=== PATIENT | male | born 1945 | race African-American/Black ===

== ENCOUNTER 2017-05-17 08:42 | Inpatient (IN) | payer OTHER, MEDICAID ==
[~2017-05-17] VITALS: Ht 188 cm; Wt 95.3 kg
[2017-05-17 08:47] VITALS: BP_SYST 119
[2017-05-17] MEDS ORDERED: NACL 0.9% 1,000 ML IV ONE ×2 (09:09→12:45)
[2017-05-17 09:49] LABS: BASOPHILS # (AUTO) 0.1 K/uL (0.0-0.2); BASOPHILS % (AUTO) 1.8 % (0.0-2.0); EOSINOPHILS # (AUTO) 0.3 K/uL (0.0-0.4); EOSINOPHILS % (AUTO) 3.6 % (0.0-4.0); HEMATOCRIT 36.5 % (36-54); HEMOGLOBIN 11.6 g/dL (14.0-18.0); LYMPHOCYTES # (AUTO) 2.3 K/uL (1.0-5.5); LYMPHOCYTES % (AUTO) 30.3 % (20.5-51.5); MEAN CORPUSCULAR HEMOGLOBIN 25 pg (27-31); MEAN CORPUSCULAR HGB CONC 32 % (32-36); MEAN CORPUSCULAR VOLUME 78 fL (79.0-98.0); MONOCYTES # (AUTO) 0.6 K/uL (0.0-1.0); MONOCYTES % (AUTO) 7.6 % (1.7-9.3); NEUTROPHILS # (AUTO) 4.2 K/uL (1.8-7.7); NEUTROPHILS % (AUTO) 56.7 % (40.0-70.0); PLATELET COUNT (AUTO) 237 K/uL (130-430); RED BLOOD CELL COUNT(AUTO) 4.69 MIL/uL (4.2-6.2); RED CELL DISTRIBUTION WIDTH 14.3 % (9.0-15.0); WHITE BLOOD COUNT (AUTO) 7.5 K/uL (4.8-10.8)
[2017-05-17 09:53] LABS: CALCIUM 8.5 mg/dL (8.4-11.0); CREATININE 1.11 mg/dL (0.55-1.30); POTASSIUM 4.5 mmol/L (3.5-5.1)
[2017-05-17 09:58] LABS: PROTHROMBIN TIME 10.9 SECS (9.5-12.5)
[2017-05-17 10:10] LABS: ALBUMIN 3.2 g/dL (3.4-4.8); TOTAL BILIRUBIN 0.3 mg/dL (0.0-1.0); TOTAL PROTEIN, SERUM 7.8 g/dL (6.4-8.3)
[2017-05-17 10:24] LABS: BILIRUBIN,URINE NEGATIVE (NEGATIVE); BLOOD, URINE NEGATIVE (NEGATIVE); CLARITY/URINE HAZY (CLEAR); COLOR,URINE YELLOW (YELLOW); GLUCOSE,URINE 3+ (NEGATIVE); KETONES,URINE NEGATIVE (NEGATIVE); LEUKOCYTE ESTERASE ,URINE TRACE (NEGATIVE); NITRITE, URINE NEGATIVE (NEGATIVE); PH,URINE 5.5 (5.0-8.0); PROTEIN URINE NEGATIVE (NEGATIVE); UROBILINOGEN,URINE 0.2 (0.2-1.0)
[2017-05-17 10:46] LABS: BACTERIA,URINE FEW /HPF (None Seen); RBC,URINE 0-3 /HPF (0-3)
[2017-05-17 10:47] LABS: MUCUS,URINE None Seen /LPF (None Seen); YEAST,URINE Many /HPF (None Seen)
[2017-05-17] MEDS ORDERED: INSULIN REGULAR, HUMAN 10 UNITS/0.1 ML INJ IVP ONE (11:15)
[2017-05-17] MEDS ORDERED: MORPHINE 4 MG/ML INJ. SYRINGE IVP PRN (13:30)
[2017-05-17] MEDS ORDERED: ONDANSETRON HCL 4 MG/2 ML VIAL IVP PRN (13:30)
[2017-05-17] MEDS ORDERED: INSULIN REGULAR, HUMAN 100 UNITS/ML, 10 ML VIAL (novoLIN R) SUBCUT PRN (13:30)
[2017-05-17] MEDS ORDERED: INSULIN REGULAR, HUMAN 10 UNITS/0.1 ML INJ ONE (13:43)
[2017-05-17] MEDS ORDERED: DOXA1TAB2 PO (14:32)
[2017-05-17] MEDS ORDERED: AMLO5TAB4 PO (14:33)
[2017-05-17] MEDS ORDERED: METF-509 PO (14:34)
[2017-05-17] MEDS ORDERED: PREG75CA PO (14:35)
[2017-05-17] MEDS ORDERED: ZOLP5TAB2 PO (14:37)
[2017-05-17] MEDS ORDERED: GLIP-195 PO (14:37)
[2017-05-17] MEDS ORDERED: SERT50TA12 PO (14:38)
[2017-05-17] MEDS ORDERED: LIP10 PO (14:38)
[2017-05-17] MEDS ORDERED: LORA-258 PO (14:39)
[2017-05-17] MEDS ORDERED: TRAM50TA92 PO (14:39)
[2017-05-17] MEDS ORDERED: SSNOVOLOG SUBCUT (14:40)
[2017-05-17 14:47] VITALS: BP_SYST 124
[2017-05-17] MEDS ORDERED: GABA-531 PO (14:57)
[2017-05-17] MEDS ORDERED: INSU100V9 SUBCUT (14:58)
[2017-05-17] MEDS ORDERED: [UNRECOGNIZED DRUG - OTHER] PO (14:59)
[2017-05-17] MEDS ORDERED: HALO50CR2 TP (15:01)
[2017-05-17] MEDS ORDERED: MUPI15CR12 TP (15:01)
[2017-05-17] MEDS ORDERED: CICL90CR10 TP (15:02)
[2017-05-17 16:26] VITALS: BP_SYST 138
[2017-05-17] MEDS ORDERED: LORazepam 1 MG TABLET PO SCH (19:00)
[2017-05-17] MEDS ORDERED: cefTRIAXone 1 GM in D5W 50 ML IV SCH (19:00)
[2017-05-17] MEDS: NACL 0.9% 1,000 ML IV SCH (19:52)
[2017-05-17 20:39] VITALS: BP_SYST 142
[2017-05-17] MEDS: PREGABALIN 75 MG CAPSULE (LYRICA) PO SCH ×2 (21:00→21:10)
[2017-05-17] MEDS ORDERED: SERTRALINE HCL 50 MG TABLET PO SCH (21:00)
[2017-05-17] MEDS ORDERED: ZOLPIDEM TARTRATE 5 MG TABLET PO SCH (21:00)
[2017-05-17] MEDS ORDERED: ATORVASTATIN 10 MG TABLET PO SCH (21:00)
[2017-05-17] MEDS: glipiZIDE XL 5 MG TAB ( GLUCOTROL XL) PO SCH ×2 (21:00→21:10)
[2017-05-17] MEDS: amLODIPine BESYLATE 5 MG TABLET PO SCH (21:09)
[2017-05-17] MEDS ORDERED: cefTRIAXone 1 GM IVPB PREMIX 50 ML IV ONE (21:47)
[2017-05-17 23:25] VITALS: BP_SYST 143
[2017-05-18] MEDS ORDERED: LORazepam 1 MG TABLET PO PRN
[2017-05-18 05:53] VITALS: BP_SYST 139
[2017-05-18 08:00] VITALS: BP_SYST 133
[2017-05-18] MEDS: NACL 0.9% 1,000 ML IV SCH (08:48)
[2017-05-18] MEDS: amLODIPine BESYLATE 5 MG TABLET PO SCH (09:29)
[2017-05-18] MEDS: PREGABALIN 75 MG CAPSULE (LYRICA) PO SCH (09:29)
[2017-05-18] MEDS: glipiZIDE XL 5 MG TAB ( GLUCOTROL XL) PO SCH (09:29)
[2017-05-18 12:12] VITALS: BP_SYST 126
[2017-05-18 16:00] VITALS: BP_SYST 143
[2017-05-18 17:06] VITALS: BP_SYST 145
== END 2017-05-18 17:15 | disposition home or self-care (01) | DRG 690 ==
LOC: SED 08:42 → SMU 12:42
PROVIDERS: ADMIT Family Medicine; ATTEND Family Medicine
PROC: 02HV33Z Insertion of Infusion Device into Superior Vena Cava, Percutaneous Approach (ICD-10-PCS; principal; 2017-05-17)
PROC: B548ZZA Ultrasonography of Superior Vena Cava, Guidance (ICD-10-PCS; 2017-05-17)
DX: N39.0 Urinary tract infection, site not specified (principal); K57.90 Diverticulosis of intestine, part unspecified, without perforation or abscess without bleeding; I10 Essential (primary) hypertension; E11.21 Type 2 diabetes mellitus with diabetic nephropathy; E11.40 Type 2 diabetes mellitus with diabetic neuropathy, unspecified; F41.9 Anxiety disorder, unspecified; E11.65 Type 2 diabetes mellitus with hyperglycemia; Z90.49 Acquired absence of other specified parts of digestive tract; Z86.73 Personal history of transient ischemic attack (TIA), and cerebral infarction without residual deficits; Z79.4 Long term (current) use of insulin; Z79.899 Other long term (current) drug therapy; Z79.84 Long term (current) use of oral hypoglycemic drugs
CPT/HCPCS: 36415; 71010; 80053; 81000-TC; 82150-TC; 82962; 83605; 83690-TC; 85025; 85610-TC; 85730-TC; 87086; 96360; 96361; 99285; C1751; C1769; J0696; J1815; J2270; J7030; J7060

== ENCOUNTER 2017-09-30 07:41 | Day surgery (SDC) | payer OTHER, MEDICAID ==
[~2017-09-30] VITALS: Ht 188 cm; Wt 90.7 kg
[~2017-09-30 07:41] MED LIST: AMLO5TAB4 PO; CICL90CR10 TP; DOXA1TAB2 PO; GABA-531 PO; GLIP-195 PO; HALO50CR2 TP; INSU100V9 SUBCUT; LIP10 PO; LORA-258 PO; METF-509 PO; MUPI15CR12 TP; PREG75CA PO; SERT50TA12 PO; SSNOVOLOG SUBCUT; TRAM50TA92 PO; ZOLP5TAB2 PO; [UNRECOGNIZED DRUG - OTHER] PO
[2017-09-30] MEDS ORDERED: SIMETHICONE 40 MG/0.6 ML ML ONE (08:17)
[2017-09-30] MEDS ORDERED: MIDAZOLAM HCL 5 MG/5 ML VIAL ONE (08:19)
[2017-09-30] MEDS ORDERED: fentaNYL CITRATE/PF 100 MCG/2 ML AMP ONE (08:20)
[2017-09-30] MEDS ORDERED: BENZOCAINE 20% 0.5mL UD SPRAY MM ONE (09:15)
[2017-09-30 14:16] VITALS: BP_SYST 138
== END 2017-09-30 10:30 | disposition home or self-care (01) ==
LOC: SMU 07:41 → SDS 07:41
PROVIDERS: ATTEND Internal Medicine
DX: K29.70 Gastritis, unspecified, without bleeding (principal); K21.0 Gastro-esophageal reflux disease with esophagitis; I63.9 Cerebral infarction, unspecified; E11.9 Type 2 diabetes mellitus without complications; J45.909 Unspecified asthma, uncomplicated; F17.210 Nicotine dependence, cigarettes, uncomplicated
CPT/HCPCS: 36415; 43239; 82962; 87081; 88305; 88312; 88313; J7030; J2250; J3010

== ENCOUNTER 2018-03-21 08:55 | Inpatient (IN) | payer OTHER, MEDICAID ==
[2018-03-21] VITALS (13 sets, daily range): BP systolic 88–137
[~2018-03-21] VITALS: Ht 188 cm; Wt 99.8 kg
[2018-03-21] MEDS ORDERED: NACL 0.9% 1,000 ML IV ONE (09:02)
[2018-03-21] MEDS ORDERED: ASPIRIN 81 MG TAB.CHEW PO ONE (09:15)
[2018-03-21 09:59] LABS: BASOPHILS % (AUTO) 0.3 % (0.0-2.0); EOSINOPHILS % (AUTO) 0.2 % (0.0-4.0); HEMATOCRIT 36.6 % (36-54); HEMOGLOBIN 11.6 g/dL (14.0-18.0); LYMPHOCYTES # (AUTO) 1.8 K/uL (1.0-5.5); LYMPHOCYTES % (AUTO) 13.7 % (20.5-51.5); MEAN CORPUSCULAR HEMOGLOBIN 23 pg (27-31); MEAN CORPUSCULAR HGB CONC 32 % (32-36); MEAN CORPUSCULAR VOLUME 74 fL (79.0-98.0); MONOCYTES # (AUTO) 0.6 K/uL (0.0-1.0); MONOCYTES % (AUTO) 4.8 % (1.7-9.3); NEUTROPHILS # (AUTO) 10.7 K/uL (1.8-7.7); PLATELET COUNT (AUTO) 325 K/uL (130-430); RED BLOOD CELL COUNT(AUTO) 4.97 MIL/uL (4.2-6.2); RED CELL DISTRIBUTION WIDTH 16.3 % (9.0-15.0); WHITE BLOOD COUNT (AUTO) 13.1 K/uL (4.8-10.8)
[2018-03-21 10:07] LABS: ANION GAP 14 (5-15); CALCIUM 8.7 mg/dL (8.4-11.0); CHLORIDE 102 mmol/L (98-107); CREATININE 1.52 mg/dL (0.55-1.30); GLUCOSE 391 mg/dL (70-99); POTASSIUM 4.4 mmol/L (3.5-5.1); SODIUM SERUM 136 mmol/L (136-145); UREA NITROGEN, BLOOD 19 mg/dL (8-21)
[2018-03-21 10:12] LABS: GFR AFRICAN AMERICAN 59 mL/min (>90)
[2018-03-21 10:13] LABS: ALANINE AMINOTRANSFERASE 25 U/L (12-78); ALBUMIN 2.9 g/dL (3.4-4.8); AMYLASE 55 U/L (0-100); ASPARTATE AMINOTRANSFERASE 32 U/L (10-37); LIPASE 89 U/L (73-393); TOTAL BILIRUBIN 0.8 mg/dL (0.0-1.0)
[2018-03-21 10:15] LABS: ALCOHOL, BLOOD < 3 mg/dL (<10)
[2018-03-21 10:16] LABS: INR 1.1 (0.80-1.20); PROTHROMBIN TIME 10.8 SECS (9.5-12.5)
[2018-03-21] MEDS ORDERED: FUROSEMIDE 40 MG/4 ML VIAL IVP ONE (10:30)
[2018-03-21] MEDS ORDERED: ARTHRITIS TP (10:53)
[2018-03-21] MEDS ORDERED: SERT-131 PO (10:53)
[2018-03-21] MEDS ORDERED: METF1000 PO (10:53)
[2018-03-21] MEDS ORDERED: DOXA4TAB2 PO (10:53)
[2018-03-21] MEDS ORDERED: HALO50CR2 TP (10:53)
[2018-03-21] MEDS ORDERED: LIPA1CAP23 PO (10:53)
[2018-03-21] MEDS ORDERED: GABA-531 PO (10:53)
[2018-03-21] MEDS ORDERED: INSU100I26 SQ (10:53)
[2018-03-21] MEDS ORDERED: TRAM50TA92 PO (10:53)
[2018-03-21] MEDS ORDERED: INSU100I4 SQ (10:53)
[2018-03-21] MEDS ORDERED: PREG75CA PO (10:53)
[2018-03-21] MEDS ORDERED: LORA-258 PO (10:53)
[2018-03-21] MEDS ORDERED: TRIA15CR4 TP (10:53)
[2018-03-21] MEDS ORDERED: PRO40 PO (10:53)
[2018-03-21] MEDS ORDERED: BUSP5TAB3 PO (10:53)
[2018-03-21] MEDS ORDERED: FUROSEMIDE 40 MG/4 ML VIAL ONE (13:33)
[2018-03-21] MEDS ORDERED: SODIUM BICARBONATE 8.4% VIAL 50 MEQ/50 ML VIAL INJ ONE (14:30)
[2018-03-21] MEDS ORDERED: LORazepam 2 MG/ML VIAL (FOR ER USE) ONE (14:36)
[2018-03-21] MEDS ORDERED: LORazepam 2 MG/ML VIAL IVP ONE ×2 (14:45→15:45)
[2018-03-21] MEDS ORDERED: SODIUM BICARBONATE 8.4% JECT 50 MEQ in 0.45% NACL 1,000 ML IV SCH (15:15)
[2018-03-21] MEDS ORDERED: LORazepam 2 MG/ML VIAL ONE (15:44)
[2018-03-21] MEDS ORDERED: LORazepam 2 MG/ML VIAL IVP PRN (15:45)
[2018-03-21] MEDS ORDERED: SODIUM BICARBONATE 8.4% IV ONE (15:45)
[2018-03-21] MEDS ORDERED: JECT IV ONE (15:45)
[2018-03-21] MEDS ORDERED: D5W IV ONE (15:45)
[2018-03-21 15:48] LABS: INR 1.1 (0.80-1.20); PROTHROMBIN TIME 11.5 SECS (9.5-12.5)
[2018-03-21 15:54] LABS: BILIRUBIN,URINE 2+ (NEGATIVE); BLOOD, URINE 2+ (NEGATIVE); CLARITY/URINE HAZY (CLEAR); COLOR,URINE YELLOW (YELLOW); GLUCOSE,URINE 3+ (NEGATIVE); KETONES,URINE TRACE (NEGATIVE); LEUKOCYTE ESTERASE ,URINE 2+ (NEGATIVE); NITRITE, URINE NEGATIVE (NEGATIVE); PROTEIN URINE 1+ (NEGATIVE)
[2018-03-21] MEDS ORDERED: DEXTROSE 50% JECT 50 ML DISP.SYRIN IVP PRN (16:00)
[2018-03-21] MEDS ORDERED: traMADol HCL HCL 50 MG TABLET (ULTRAM) PO PRN (16:00)
[2018-03-21] MEDS ORDERED: IPRATROPIUM/ALBUTEROL SULFATE 3 ML AMPUL.NEB INH PRN (16:00)
[2018-03-21 16:06] LABS: BARBITURATE, URINE NEGATIVE (NEG <=200); BENZODIAZEPINE, URINE NEGATIVE (NEG <=150); CANNABINOID, URINE NEGATIVE (NEG <=50); COCAINE, URINE NEGATIVE (NEG <=150); METHAMPHETAMINES SCREEN,URINE NEGATIVE (NEG <=500); OPIATE, URINE NEGATIVE (NEG <=100); PHENCYCLIDINE SCREEN,URINE NEGATIVE (NEG <=25); UR TRICYCLIC ANTIDEPRESSANTS NEGATIVE (NEG <=300); URINE AMPHETAMINE NEGATIVE (NEG <=500); URINE METHADONE NEGATIVE (NEG <=200); URINE OXYCODONE SCREEN NEGATIVE (NEG <=100); URINE PROPOXYPHENE SCREEN NEGATIVE (NEG <=300)
[2018-03-21 16:14] LABS: BACTERIA,URINE FEW /HPF (None Seen); MUCUS,URINE None Seen /LPF (None Seen); YEAST,URINE Many /HPF (None Seen)
[2018-03-21] MEDS ORDERED: LORazepam 2 MG/ML VIAL IM PRN (16:15)
[2018-03-21] MEDS ORDERED: ENOXAPARIN SODIUM 40 MG/0.4 ML SYRINGE SUBCUT ONE (16:30)
[2018-03-21] MEDS ORDERED: PANTOPRAZOLE SODIUM 40 MG/VIAL (PROTONIX) IVP ONE (16:30)
[2018-03-21] MEDS ORDERED: NOREPINEPHRINE BITARTRATE 4 MG in NS 246 ML IV PRN (17:30)
[2018-03-21] MEDS: NACL 0.9% 1,000 ML IV SCH ×3 (17:35→19:34)
[2018-03-21] MEDS: levETIRAcetam 500 MG in NS 100 ML IV SCH ×2 (17:38→21:02)
[2018-03-21] MEDS: metFORMIN HCL 500 MG TABLET PO SCH (18:00)
[2018-03-21] MEDS ORDERED: INSULIN REGULAR, HUMAN 100 UNITS/ML, 10 ML VIAL SUBCUT ONE ×2 (18:00→23:45)
[2018-03-21] MEDS ORDERED: VALPROATE SODIUM 1,000 MG in NS 100 ML IV ONE (18:15)
[2018-03-21] MEDS: PIPERACILLIN/TAZO 3.375/DEX-IS 50 ML IV SCH ×2 (18:27→23:16)
[2018-03-21] MEDS: IPRATROPIUM/ALBUTEROL SULFATE 3 ML AMPUL.NEB INH SCH ×2 (19:42→23:21)
[2018-03-21] MEDS ORDERED: VALPROATE SODIUM 100 MG/ML VIAL (DEPACON) IV ONE ×3 (19:45→20:14)
[2018-03-21] MEDS ORDERED: AZITHROMYCIN 500 MG in NS 250 ML IV SCH (21:00)
[2018-03-21] MEDS ORDERED: SERTRALINE HCL 50 MG TABLET PO SCH (21:00)
[2018-03-21] MEDS ORDERED: ATORVASTATIN 10 MG TABLET PO SCH (21:00)
[2018-03-21] MEDS ORDERED: GABAPENTIN 300 MG CAPSULE PO SCH (21:00)
[2018-03-21] MEDS: glipiZIDE XL 5 MG TAB ( GLUCOTROL XL) PO SCH (21:59)
[2018-03-21] MEDS: LIPASE/PROTEASE/AMYLASE 1 CAP PO SCH (21:59)
[2018-03-21] MEDS: PREGABALIN 75 MG CAPSULE (LYRICA) PO SCH (21:59)
[2018-03-21] MEDS: PANTOPRAZOLE SODIUM 40 MG/VIAL (PROTONIX) IVP SCH (22:00)
[2018-03-21] MEDS: VALPROATE SODIUM 500 MG in D5W 100 ML IV SCH (22:00)
[2018-03-21] MEDS: INSULIN REGULAR, HUMAN 100 UNITS/ML, 10 ML VIAL (novoLIN R) SUBCUT PRN (22:04)
[2018-03-22] VITALS (25 sets, daily range): BP systolic 104–150
[2018-03-22] MEDS: IPRATROPIUM/ALBUTEROL SULFATE 3 ML AMPUL.NEB INH SCH ×4 (03:58→15:47)
[2018-03-22] MEDS: VALPROATE SODIUM 500 MG in D5W 100 ML IV SCH ×2 (05:58→15:30)
[2018-03-22] MEDS: PIPERACILLIN/TAZO 3.375/DEX-IS 50 ML IV SCH ×3 (05:59→16:56)
[2018-03-22] MEDS: INSULIN REGULAR, HUMAN 100 UNITS/ML, 10 ML VIAL (novoLIN R) SUBCUT PRN ×3 (06:03→16:49)
[2018-03-22 07:35] LABS: ALBUMIN 2.5 g/dL (3.4-4.8); CALCIUM 7.9 mg/dL (8.4-11.0); CREATININE 2.03 mg/dL (0.55-1.30); FREE T4 (FREE THYROXINE) 1.5 ng/dL (0.6-1.6); POTASSIUM 4.8 mmol/L (3.5-5.1); THYROID STIMULATING HORMONE 0.48 uIu/mL (0.34-4.82); TOTAL BILIRUBIN 0.5 mg/dL (0.0-1.0)
[2018-03-22 07:56] LABS: BASOPHILS # (AUTO) 0.4 K/uL (0.0-0.2); BASOPHILS % (AUTO) 2.9 % (0.0-2.0); EOSINOPHILS % (AUTO) 0.1 % (0.0-4.0); HEMATOCRIT 36.3 % (36-54); HEMOGLOBIN 11.5 g/dL (14.0-18.0); LYMPHOCYTES # (AUTO) 1.1 K/uL (1.0-5.5); LYMPHOCYTES % (AUTO) 8.1 % (20.5-51.5); MEAN CORPUSCULAR HEMOGLOBIN 24 pg (27-31); MEAN CORPUSCULAR HGB CONC 32 % (32-36); MEAN CORPUSCULAR VOLUME 75 fL (79.0-98.0); MONOCYTES # (AUTO) 0.8 K/uL (0.0-1.0); NEUTROPHILS # (AUTO) 11.6 K/uL (1.8-7.7); NEUTROPHILS % (AUTO) 82.9 % (40.0-70.0); RED BLOOD CELL COUNT(AUTO) 4.82 MIL/uL (4.2-6.2); RED CELL DISTRIBUTION WIDTH 16.9 % (9.0-15.0)
[2018-03-22] MEDS: PREGABALIN 75 MG CAPSULE (LYRICA) PO SCH (08:13)
[2018-03-22] MEDS: metFORMIN HCL 500 MG TABLET PO SCH (08:13)
[2018-03-22] MEDS: LIPASE/PROTEASE/AMYLASE 1 CAP PO SCH ×2 (08:13→15:29)
[2018-03-22] MEDS: PANTOPRAZOLE SODIUM 40 MG/VIAL (PROTONIX) IVP SCH (08:14)
[2018-03-22] MEDS: levETIRAcetam 500 MG in NS 100 ML IV SCH (08:17)
[2018-03-22] MEDS: glipiZIDE XL 5 MG TAB ( GLUCOTROL XL) PO SCH (08:18)
[2018-03-22 08:26] LABS: WHITE BLOOD COUNT (AUTO) 13.9 K/uL (4.8-10.8)
[2018-03-22] MEDS: NACL 0.9% 1,000 ML IV SCH ×2 (08:56→15:29)
[2018-03-22] MEDS ORDERED: busPIRone HCL 5 MG TABLET PO SCH (09:00)
[2018-03-22] MEDS ORDERED: MUPIROCIN CALCIUM 15 GM TP SCH (09:00)
[2018-03-22] MEDS ORDERED: ASPIRIN 81 MG TAB.CHEW NG SCH (09:00)
[2018-03-22] MEDS ORDERED: DOXAZOSIN MESYLATE 2 MG TABLET PO SCH (09:00)
[2018-03-22] MEDS ORDERED: ENOXAPARIN SODIUM 40 MG/0.4 ML SYRINGE SUBCUT SCH (09:00)
[2018-03-22 09:32] LABS: PLATELET COUNT (AUTO) 246 K/uL (130-430)
[2018-03-22] MEDS ORDERED: MORPHINE 4 MG/ML INJ. SYRINGE IVP PRN (10:15)
[2018-03-22] MEDS ORDERED: ACETAMINOPHEN 325 MG TABLET PO PRN (10:15)
[2018-03-22] MEDS ORDERED: VALPROATE SODIUM 100 MG/ML VIAL (DEPACON) IV ONE (15:16)
[2018-03-22] MEDS ORDERED: MORPHINE 4 MG/ML INJ. SYRINGE IVP ONE (17:30)
[2018-03-22] MEDS ORDERED: MORPHINE I.V. DRIP 100 ML IV PRN (18:00)
== END 2018-03-22 19:50 | disposition expired | DRG 871 ==
LOC: SED 08:55 → STU 11:37 → SIC 15:30
PROVIDERS: ADMIT Internal Medicine; ATTEND Internal Medicine
PROC: 5A1935Z Respiratory Ventilation, Less than 24 Consecutive Hours (ICD-10-PCS; principal; 2018-03-21)
PROC: 05PYX3Z Removal of Infusion Device from Upper Vein, External Approach (ICD-10-PCS; 2018-03-21)
PROC: 02HV33Z Insertion of Infusion Device into Superior Vena Cava, Percutaneous Approach (ICD-10-PCS; 2018-03-21)
PROC: B548ZZA Ultrasonography of Superior Vena Cava, Guidance (ICD-10-PCS; 2018-03-21)
DX: A41.9 Sepsis, unspecified organism (principal); R65.21 Severe sepsis with septic shock; I46.9 Cardiac arrest, cause unspecified; J69.0 Pneumonitis due to inhalation of food and vomit; J96.00 Acute respiratory failure, unspecified whether with hypoxia or hypercapnia; G93.1 Anoxic brain damage, not elsewhere classified; N17.9 Acute kidney failure, unspecified; I69.354 Hemiplegia and hemiparesis following cerebral infarction affecting left non-dominant side; I13.0 Hypertensive heart and chronic kidney disease with heart failure and stage 1 through stage 4 chronic kidney disease, or unspecified chronic kidney disease; Z51.5 Encounter for palliative care; Z66 Do not resuscitate; I50.9 Heart failure, unspecified; K21.9 Gastro-esophageal reflux disease without esophagitis; E11.22 Type 2 diabetes mellitus with diabetic chronic kidney disease; E11.40 Type 2 diabetes mellitus with diabetic neuropathy, unspecified; E11.51 Type 2 diabetes mellitus with diabetic peripheral angiopathy without gangrene; E78.5 Hyperlipidemia, unspecified; F41.9 Anxiety disorder, unspecified; N18.9 Chronic kidney disease, unspecified; N40.0 Benign prostatic hyperplasia without lower urinary tract symptoms; Z74.01 Bed confinement status; Z79.4 Long term (current) use of insulin; Z87.891 Personal history of nicotine dependence; Z99.3 Dependence on wheelchair; Z79.899 Other long term (current) drug therapy; Z79.84 Long term (current) use of oral hypoglycemic drugs; Z82.49 Family history of ischemic heart disease and other diseases of the circulatory system; Z84.89 Family history of other specified conditions; Z90.49 Acquired absence of other specified parts of digestive tract
CPT/HCPCS: 36415; 36600; 70450-TC; 71045; 80053; 80307; 81000-TC; 82150-TC; 82550-TC; 82803-TC; 82962; 83605; 83690-TC; 83735-TC; 83880; 84100-TC; 84439; 84443-TC; 84484; 85025; 85379; 85610-TC; 85730-TC; 87040-TC; 87081; 87086; 93005; 93880; 94002; 94003; 94640; 95816; 96374; 96375; 99291; 99292; C1751; C9113; G0482; J0456; J1650; J1815; J1940; J1953; J2060; J2270; J2543; J7030; J7050; J7060; J7620